=== PATIENT | female | born 1975 | race Caucasian/White ===

== ENCOUNTER 2020-05-04 21:46 | Inpatient (IN) | payer BC ==
--- OUTSIDE RECORDS SUMMARY | 2020-05-04 21:49 | XMS REPORT | Continuity of Care Document ---
:1975 Author Organization [facility] Team Providers Name Role Phone [employer] Information [employer] Unavailable Un available Problems Problem Status Onset Classification Date Comments [facility] e Date Reported M79.673 - PAIN IN Active 06/15/20 [facility] UNSPECIFIED FOOT [address] [place] Mitral valve Active Problem 06/18/2017 OPI D regurgitation [place] (disorder) Cervical disc Active Problem 05/23/2019 [facility] dical disorder Group, (disorder) [facility] [place] Chronic neck pain Active Problem 05/23/2019 [facility] (finding) Group, [facility] [place] Disorder of Active Problem 05/23/2019 [facility] sleep-wake cycle Félix up, (disorder) [facility] [place] Carpal tunnel Active Problem 05/23/2019 [facility] dical syndrome Group, (disorder) [facility] [place] History of - Active Problem 05/23/2019 Med ical [place]'s palsy Group,M H (context-dependent O PID [place]) [place] Hyperlipidemia Active Problem 05/23/2019 [facility] edical (disorder) Group, [facility] [place] Hypertensive Active Problem 05/23/2019 Med ical disorder, systemic G miranda, arterial [facility] [place] (disorder) [place] Hypothyroidism Active Problem 05/23/2019 [facility] edical (disorder) Group, [facility] [place] Mitral valve Active Problem 05/23/2019 Med ical prolapse Group, (disorder) [facility] [place] Depressive Active Problem 05/23/2019 Medic al disorder Group, (disorder) [facility] [place] Raynaud's disease Active Problem 05/23/2019 [facility] Medical (disorder) Group, [facility] [place] Abnormal cervical Active Problem 05/23/2019 [facility] Medical Papanicolaou smear Aileen jean, (finding) [facility] [place] Patient encounter Active Problem 05/23/2019 M [facility] status (finding) Félix up, [facility] [place] Medications Medication Details Route Status Patient Ordering Order Source Instructions Provider Date Metronidazole 1 appl, TOP, Active MH 0.01 MG/MG Daily, # 45 gm, 019 Medic al Topical Gel 1 Refill(s), Group [MetroGel] Pharmacy: [facility] 808 levocetirizine 5 1 tab, PO, QPM, Active MH mg oral tablet # 90 tab, 1 019 Medic al Refill(s), Group Pharmacy: [facility] 808 rosuvastatin 5 = 1 tab, PO, Active MH mg oral tablet Bedtime, # 90 019 Med ical tab, 1 Group Refill(s), Pharmacy: [facility] 808 Metoprolol See Active Succinate ER 50 Instructions, 019 Me dical mg oral tablet, TAKE 1 TABLET Gr oup extended release BY MOUTH TWICE A DAY AND AT BEDTIME, # 270 tab, 1 Refill(s), Pharmacy: [facility] 808 meloxicam 15 mg 15 mg = 1 tab, Active M H oral tablet PO, Daily, PRN 019 Medic al neck pain only, Group # 30 tab, 0 Refill(s), Pharmacy: [facility] 808 Alprazolam 0.25 0.25 mg = 1 Active MH MG Oral Tablet tab, PO, Daily, 019 M edical [Xanax] PRN panic Group attacks tamela, # 30 tab, 0 Refill(s) meloxicam 15 mg 15 mg = 1 tab, Active M H oral tablet PO, Daily, PRN 019 Medic al neck pain only, Group # 30 tab, 0 Refill(s) Alprazolam 0.25 0.25 mg = 1 Active MH MG Oral Tablet tab, PO, Daily, 019 M edical [Xanax] PRN panic Group attacks tamela, # 30 tab, 0 Refill(s) FLUoxetine 40 mg = 1 cap, PO, Active MH oral capsule Daily, # 90 019 Medical cap, 1 Group Refill(s), Pharmacy: [facility]/pharmacy #[id number] Vitamin D2 See Active MH 50,000 intl Instructions, # 018 Medi mirella units oral 12 unknown Group capsule unit, Refill(s) 1, TAKE ONE CAPSULE BY MOUTH ONCE A WEEK FOR 12 WEEKS, Pharmacy: [facility]/pharmacy #[id number] Metronidazole See Active 0.0075 MG/MG Instructions, # 018 Med ical Vaginal Gel 70 gm, INSERT 1 Grou p APPLICATORFUL VAGINALLY AT BEDTIME, Pharmacy: [facility] Metronidazole See Active 0.0075 MG/MG Instructions, # 018 Med ical Vaginal Gel 70 gm, INSERT 1 Grou p APPLICATORFUL VAGINALLY AT BEDTIME, Pharmacy: [facility] Metoprolol See Active Succinate ER 50 Instructions, # 018 Medical mg oral tablet, 270 tab, Group extended release Refill(s) 1, TAKE 1 TABLET BY MOUTH TWICE DAILY AND AT BEDTIME, Pharmacy: [facility] levocetirizine 5 See Active mg oral tablet Instructions, # 018 M edical 90 tab, Group Refill(s) 1, TAKE 1 TABLET BY MOUTH EVERY EVENING, Pharmacy: [facility] Ergocalciferol See Active 02138 UNT Oral Instructions, # 018 M edical Capsule 11 unknown Group unit, Refill(s) 2, TAKE 1 CAPSULE BY MOUTH EVERY WEEK, Pharmacy: [facility] Naltrexone PO, 0 Refill(s) Active 017 Medical Group Allergies, Adverse Reactions, Alerts Substance Category Reaction Severity Reaction Status Date Comments S ource type Reported Adhesive Assertion Drug Active Tape allergy Medical Group codeine Assertion Drug Active allergy Medical Group Dilaudid Assertion Drug Active allergy Medical Group morphine Assertion Drug Active allergy Medical Group Norvasc Assertion Drug Active allergy Medical Group Robaxin Assertion Drug Active allergy Medical Group Immunizations No Data Provided for This Section Results No Data Provided for This Section Pathology Reports No Data Provided for This Section Diagnostic Reports Report Value Date Source Spine cervical series EXAM: 03/09/2019 CHENCHO Connelly DX Cervical spine x-ray, 5 view(s). CLINICAL HX: - M54.2 Cervicalgia. Age: 43 years. Gender: Female. COMPARISON: None. FINDINGS: Technical: On the lateral vi ew(s), the craniocervical junction to the C7-T1 levels are visualized. Alignment: Mild straightening, likely positional . Fracture: No acute fracture or subluxation. Odontoid process: Intact. Spondylosis: Mild multilevel uncovertebral joint hypertrophy. No high-grade osseous foraminal narrowing. Prevertebral soft tissues: Within normal limits. IMPRESSION: 1. No acute fracture. Foot 2 views DX Exam: Right foot x-ray, 3 views 06/15/2017 [facility] [place] Reason for Exam: M79.673 P ain in unspecified foot - M79.673 Pain in unspecified foot Comparison Exam: None Discussion: Slightly displaced oblique f racture is seen within the mid and distal aspects of the proximal phalanx of the 5th digit. The fracture line extends into the articulating surface with the distal phalanx. N o suspicious osteoblastic or osteolytic lesions seen to suggest pathologic involvement. Findings discussed with esthetician and manager medical spa Julisa on 06/15/2017 at 1325 hours. Impression: 1. Slightly displaced obliq ue fracture is seen within the mid and distal aspects of the proximal phalanx of the 5th digit. Consultation Notes No Data Provided for This Section Discharge Summaries No Data Provided for This Section History and Physicals No Data Provided for This Section Vital Signs Vital Sign Value Date Comments Source Height 154.94 cm 03/09/2019 [facility] Gr[facility] p BMI Calculated 27.08 03/09/2019 [facility] Gr oup Temperature Oral (F) 98.8 F 03/09/2019 [facility] Heart Rate 75 03/09/2019 Medical Gr[facility] p Weight 65 03/09/2019 Medical Gr[facility] p Systolic (mm Hg) 127 03/09/2019 Medical Group Diastolic (mm Hg) 84 03/09/2019 Medical Group Weight 68.364 10/20/2017 Medical Grou p BMI Calculated 27.57 10/20/2017 Medical Gr oup Systolic (mm Hg) 135 10/20/2017 Medical Group Diastolic (mm Hg) 90 10/20/2017 Medical Group Heart Rate 71 10/20/2017 Medical Grou p Temperature Oral (F) 98.4 F 10/20/2017 [facility] Height 157.48 cm 10/20/2017 Medical Grou p Encounters Location Location Encounter Encounter Reason Attending ADM OK Stat Source Details Type Number For Provider Date Date Visit Outpatient [id number] MAJID 11/12 [facility] [place] [facility] [id number] SORAIDA 12/02 [facility] /2017 [place] [facility] [id number] CAR[place]INA 02/21 Activ e [facility] ADEJU [place] [facility] [id number] ECHO VISIT 05/06 Act [facility] Outpatient [id number] [place] 05/13 Active [facility] Outpatient [id number] SORAIDA 06/02 Active [facility] JONATHAN [facility] Out[facility] Diag [id number] [place] 06/15 06/[address] [facility] [address] [facility] /2016 [facility] [place] [facility] [place] Outpatient [id number] SORAIDA 10/20 Active [facility] [id number] Sora[place] 10/20 10/21 [facility] [place] Outpatient [id number] CAROLYN 11/14 Active [facility] ORTEZ [facility] Outpatient [id number] MAJID 11/18 [facility] [id number] Majid 11/18 11/18 Cardiology Pre-Reg Adilson /2017 Medic al [place] Group [facility] Outpatient [id number] SORAIDA 12/02 Active [facility] JONATHAN [place] [facility] Phone [id number] 01/11 01/13 Primary Message /2017 [facility] [place] [facility] [place] Outpatient [id number] SORAIDA 02/17 Active [facility] JONATHAN [facility] Phone [id number] 02/24 02/26 MH Primary Message /2017 [facility] [place] [facility] Phone [id number] 03/14 03/16 MH Primary Message /2017 [facility] [place] [facility] Phone [id number] 07/20 07/22 MH Primary Message /2017 [facility] [place] MG Phone [id number] 11/01 11/03 Primary Message /2018 [facility] [place] [facility] [place] [facility] Phone [id number] 02/23 02/25 Primary Message /2018 [facility] [place] [facility] [place] Outpatient [id number] Soraida 03/09 [facility] [id number] S[place] 03/09 03/10 MH Primary Jonathan /2018 [facility] [place] [facility] Outpt Diag [id number] Soraida 03/09 03/10 [facility] Out[facility] [place] [facility] Between [id number] 03/10 03/11 Primary Visit /2018 [facility] [place] [facility] [place] [facility] Between [id number] 03/12 03/13 Primary Visit /2018 [facility] [place] [facility] Phone [id number] 03/13 03/15 Primary Message /2018 [facility] [place] Outpatient [id number] Adi 06/05 Active [facility] Procedures Procedure Code Date Perfomer Comments Source Breast augmentation [id number] [facility] dical Group, [facility] [place] Cholecystectomy [id number] Medica l Group, [facility] [place] Laminectomy [id number] Medical Group, [facility] [place] TL - Tubal ligation [id number] [facility] dical Group, [facility] [place] Assessment and Plan No Data Provided for This Section Plan of Care No Data Provided for This Section Social History Social History Date Source Social History TypeResponse 12/02/2016 [facility] [place] Alcohol Current, Frequency: 1-2 times per month. Smoking Status Never smoker; Ready to change: No; Kim rns about tobacco use in household: No; Lives with someone who smokes; Cigarette Smoking Last 365 Days No; Reg Smoking Cessation Counseling No; Other Tobacco Frequency smokes outside; entered on: 03/09/19 Social History TypeResponse 12/02/2016 [facility] [place] Alcohol Current, Frequency: 1-2 times per month. Smoking Status Never smoker; Ready to change: No; Kim rns about tobacco use in household: No; Lives with someone who smokes; Cigarette Smoking Last 365 Days No; Reg Smoking Cessation Counseling No; Other Tobacco Frequency smokes outside; entered on: 03/09/19 Family History No Data Provided for This Section Advance Directives No Data Provided for This Section Functional Status No Data Provided for This Section
[2020-05-04] MEDS ORDERED: ONDANSETRON 4 MG/2 ML VIAL ONE (22:38)
[2020-05-04] MEDS ORDERED: NA CHLORIDE 0.9% 1,000 ML ONE (22:38)
[2020-05-04 23:22] LABS: Absolute Lymphocytes (CBC) 1.1 K/uL (0.7-4.9); Basophils % 0.3 % (0-1.3); MPV 8.3 fL (7.6-11.3); RBC Red Blood Cell Count 4.54 M/uL (3.86-4.86)
[2020-05-04 23:35] LABS: ALT/SGPT 43 U/L (12-78); AST/SGOT 33 U/L (15-37); Albumin 3.6 g/dL (3.4-5.0); Alkaline Phosphatase 193 U/L (45-117); BUN Blood Urea Nitrogen 24 mg/dL (7-18); Bicarbonate 20 mmol/L (21-32); Bilirubin Total 0.7 mg/dL (0.2-1.0); Glucose Level 92 mg/dL (74-106); Potassium 4.3 mmol/L (3.5-5.1); Protein, Total 7.7 g/dL (6.4-8.2); Sodium Level 141 mmol/L (136-145)
[2020-05-05] MEDS ORDERED: KETOROLAC 30 MG/ML INJ ONE (00:54)
[2020-05-05] MEDS ORDERED: ONDANSETRON 4 MG/2 ML VIAL ONE (00:55)
[2020-05-05] MEDS ORDERED: NA CHLORIDE 0.9% 1,000 ML ONE ×4 (00:55→17:08)
[2020-05-05] MEDS ORDERED: FENTANYL CITR 100 MCG/2 ML ONE (02:00)
[2020-05-05 02:32] LABS: CKMB Creatine Kinase MB < 1.0 ng/mL (0.3-3.6); Creatine Phosphokinase 57 U/L (26-192); Lipase 32 U/L (73-393); Troponin (Emerg Dept Use Only) < 0.02 ng/mL (0.0-0.045)
[2020-05-05 03:30] LABS: Urine Bacteria <20 /HPF (<20); Urine Culture Reflex Order NOT NEEDED; Urine RBC <5 /HPF (NONE SEEN)
[2020-05-05 04:39] LABS: Protime INR 1.06
[2020-05-05] MEDS ORDERED: PROMETHAZINE INJ 25 MG/ML AMP ONE (04:42)
--- NOTE | 2020-05-05 04:49 | EDPHYS ---
Physician Documentation [facility] Name: Qi Cruz Age: 44 yrs Sex: Female : 1975 Arrival Date: 05/04/2020 Time: 21:49 Bed 5 Private MD: Out, [facility] ED Physician Angel Jain HPI: 05/05 02:13 This 44 yrs old Female presents to ER via Wheelchair with complaints of tw4 Fever, Vomiting. 02:13 Onset: The symptoms/episode began/occurred today. tw4 02:15 The patient reports fever, not measured (subjective). Modifying factors: there are no tw4 obvious modifying factors. Associated signs and symptoms: Pertinent positives: headache, vomiting. Severity of symptoms: At their worst the symptoms were severe in the emergency department the symptoms are unchanged. The patient has not experienced similar symptoms in the past. 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 - Social history:: Smoking status: Patient denies any tobacco usage or history of. ROS: 05/05 02:15 Constitutional: Negative for fever, chills, and weight loss, Eyes: Negative for injury, tw4 pain, redness, and discharge, Cardiovascular: Negative for chest pain, palpitations, and edema, Respiratory: Negative for shortness of breath, cough, wheezing, and pleuritic chest pain, Back: Negative for injury and pain, MS/Extremity: Negative for injury and deformity, Skin: Negative for injury, rash, and discoloration. Abdomen/GI: Positive for nausea and vomiting, nausea, vomiting, Negative for abdominal pain, nausea, vomiting, and diarrhea, diarrhea, constipation, abdominal cramps, abdominal distension, anorexia, dysphagia, black/tarry stool, rectal pain, rectal bleeding, bowel incontinence. Neuro: Positive for headache, Negative for altered mental status, dizziness, gait disturbance, hearing loss, seizure activity, speech changes, tinnitus, visual changes. Exam: 02:15 Head/Face: Normocephalic, atraumatic. tw4 02:15 Chest/axilla: Normal chest wall appearance and motion. Nontender with no deformity. No lesions are appreciated. Cardiovascular: Regular rate and rhythm with a normal S1 and S2. No gallops, murmurs, or rubs. Normal PMI, no JVD. No pulse deficits. Respiratory: Lungs have equal breath sounds bilaterally, clear to auscultation and percussion. No rales, rhonchi or wheezes noted. No increased work of breathing, no retractions or nasal flaring. Abdomen/GI: Soft, non-tender, with normal bowel sounds. No distension or tympany. No guarding or rebound. No evidence of tenderness throughout. Back: No spinal tenderness. No costovertebral tenderness. Full range of motion. MS/ Extremity: Pulses equal, no cyanosis. Neurovascular intact. Full, normal range of motion. Neuro: Awake and alert, GCS 15, oriented to person, place, time, and situation. Cranial nerves II-XII grossly intact. Motor strength 5/5 in all extremities. Sensory grossly intact. Cerebellar exam normal. Normal gait. 02:15 Constitutional: The patient appears in obvious distress, moderately distressed. 10:51 ECG was reviewed by the Attending Physician. patito Vital Signs: 05/04 22:13 BP 142 / 88; Pulse 147; Resp 20 S; Temp 99.1(O); Pulse Ox 100% ; Weight 58.97 kg; ca1 Height 5 ft. 2 in. (157.48 cm); 22:58 BP 153 / 85; Pulse 132; Resp 20 S; Pulse Ox 100% on R/A; jd3 23:52 BP 134 / 69; Pulse 140; Resp 19 S; Temp 98.6(O); Pulse Ox 100% on R/A; jd3 0713 00:58 BP 137 / 78; Pulse 140; Resp 20 S; Pulse Ox 100% on R/A; jd3 02:19 BP 131 / 65; Pulse 146; Resp 19 S; Pulse Ox 99% on R/A; jd3 03:29 BP 124 / 58; Pulse 140; Resp 20 S; Pulse Ox 100% on R/A; jd3 04:42 BP 142 / 80; Pulse 145; Resp 19 S; Pulse Ox 99% on R/A; jd3 05:50 BP 115 / 59; Pulse 139; Resp 20 S; Pulse Ox 97% on R/A; jd3 06:30 BP 104 / 58; Pulse 128; Resp 20 S; Pulse Ox 98% on R/A; jd3 08:00 BP 105 / 52; Pulse 128; Resp 18; Pulse Ox 98% on R/A; ph 09:11 BP 115 / 61; Pulse 120; Resp 16; Pulse Ox 99% on R/A; ph 07/ 22:13 Body Mass Index 23.78 (58.97 kg, 157.48 cm) ca1 MDM: 01:22 Patient medically screened. tw4 08:03 Differential diagnosis: viral Infection, bacterial infection, URI, bronchitis. Data tw4 reviewed: vital signs, nurses notes. Data interpreted: court recording monitor: rate is 142 beats/min, rhythm is sinus tachycardia, Pulse oximetry: Interpretation: normal. Counseling: I had a detailed discussion with the patient and/or guardian regarding: the historical points, exam findings, and any diagnostic results supporting the discharge/admit diagnosis, lab results, radiology results. Physician consultation: Dagoberto Cardona regarding admission, to the ICU, patient's condition, and will see patient. 08:44 Patient medically screened. [facility] 05/04 22:23 Order name: COVID-19 [facility] 05/04 22:23 Order name: Flu; Complete Time: 01:47 05/05 01:48 Interpretation: Within normal limits. 05/04 22:23 Order name: Strep; Complete Time: 01:47 05/05 01:48 Interpretation: Within normal limits. 05/04 22:23 Order name: CBC with Diff; Complete Time: 01:47 05/05 01:47 Interpretation: Normal except: MCV 83.6; LYM% 11.0; YOANA% 79.1. [facility] 05/04 22:23 Order name: CMP; Complete Time: 01:47 05/05 01:48 Interpretation: Normal except: CL 109; CO2 20; BUN 24. [facility] 05/05 01:06 Order name: Throat Culture EDMS 05/05 02:06 Order name: Procalcitonin; Complete Time: 04:45 05/05 02:06 Order name: Ckmb; Complete Time: 05:32 05/05 05:32 Interpretation: Within normal limits: CKMB < 1.0. 05/05 02:06 Order name: CPK; Complete Time: 05:32 05/05 02:06 Order name: Lactate; Complete Time: 08:43 05/05 02:06 Order name: Lipase; Complete Time: 08:43 05/05 02:06 Order name: Protime (+inr); Complete Time: 08:43 05/05 02:06 Order name: Ptt, Activated; Complete Time: 08:43 05/05 02:06 Order name: Troponin (emerg Dept Use Only); Complete Time: 08:43 05/05 01:45 Order name: CT Head Brain wo Cont 05/05 01:45 Order name: CT Abd/Pelvis - IV Contrast Only 05/05 02:06 Order name: Urine Microscopic Only; Complete Time: 04:45 05/05 02:06 Order name: Chest Single View XRAY; Complete Time: 08:43 05/05 02:20 Order name: Urine --Ancillary (enter results); Complete Time: 08:43 05/05 02:20 Order name: Urine Dipstick--Ancillary (enter results); Complete Time: 08:43 05/05 04:41 Order name: Thyroid Stimulating Hormone; Complete Time: 05:30 05/05 05:40 Order name: T3 Free 05/05 05:40 Order name: T4 Free 05/05 05:40 Order name: T4,Total 05/05 15:22 Order name: RAD EDOR 05/05 16:25 Order name: Creatine Phosphokinase EDOR 05/05 16:25 Order name: CKMB Creatine Kinase MB EDOR 05/05 16:25 Order name: Troponin I EDOR 05/04 22:23 Order name: Document PUI#; Complete Time: 22:57 05/04 22:23 Order name: Droplet/Contact Precautions; Complete Time: 22:57 05/04 22:23 Order name: Labs collected and sent; Complete Time: 23:13 05/04 22:23 Order name: Notify Health Dept [phone]/ ; Complete Time: 23:13 05/04 22:23 Order name: O2 Per Protocol; Complete Time: 22:57 05/05 01:49 Order name: EKG - Nurse/Tech; Complete Time: 02:09 d3 05/05 02:06 Order name: Accucheck; Complete Time: 02:10 05/05 02:06 Order name: Cardiac monitoring; Complete Time: 02:10 05/05 02:06 Order name: EKG - Nurse/Tech; Complete Time: 02:10 05/05 02:06 Order name: IV Saline Lock - Large Bore; Complete Time: 02:10 05/05 02:06 Order name: Labs collected and sent; Complete Time: 04:21 05/05 02:06 Order name: O2 Per Protocol; Complete Time: 02:10 05/05 02:06 Order name: O2 Sat Monitoring; Complete Time: 02:10 05/05 02:06 Order name: Urine Dipstick-Ancillary (obtain specimen); Complete Time: 02:17 05/05 09:45 Order name: EKG - Nurse/Tech; Complete Time: 10:01 patito EC:11 Rate is 142 beats/min. Rhythm is regular. QRS [place] is Normal. CA interval is normal. tw4 QRS interval is normal. QT interval is normal. No Q waves. T waves are Normal. No ST changes noted. Clinical impression: Sinus tachycardia. Interpreted by me. Reviewed by me. 10:51 Rate is 125 beats/min. Rhythm is regular. QRS [place] is Normal. CA interval is normal. patito QRS interval is normal. QT interval is normal. No Q waves. T waves are Normal. No ST changes noted. Clinical impression: Sinus tachycardia. Interpreted by me. Reviewed by me. Administered Medications: 05/04 22:58 Drug: Zofran (Ondansetron) 4 mg Route: IVP; Site: right wrist; jd3 23:58 Follow up: Response: No adverse reaction jd3 22:58 Drug: NS 0.9% 1000 ml Route: IV; Rate: 1 bolus; Site: right wrist; jd3 23:58 Follow up: Response: No adverse reaction; IV Status: Completed infusion; IV Intake: jd3 1000ml 05/05 01:00 Drug: TORadol 30 mg Route: IVP; Site: right wrist; jd3 02:00 Follow up: Response: No adverse reaction jd3 01:00 Drug: Zofran (Ondansetron) 4 mg Route: IVP; Site: right wrist; jd3 02:00 Follow up: Response: No adverse reaction jd3 01:00 Drug: NS 0.9% 1000 ml Route: IV; Rate: 1 bolus; Site: right wrist; jd3 02:00 Follow up: Response: No adverse reaction; IV Status: Completed infusion; IV Intake: jd3 1000ml 02:09 Drug: fentaNYL (PF) 25 mcg Route: IVP; Site: right wrist; jd3 03:00 Follow up: Response: No adverse reaction; RASS: Alert and Calm (0) jd3 04:41 Drug: Phenergan 12.5 mg Route: IVP; Site: right wrist; jd3 05:40 Follow up: Response: No adverse reaction jd3 04:41 Drug: NS 0.9% 1000 ml Route: IV; Rate: 1 bolus; Site: right wrist; jd3 05:40 Follow up: Response: No adverse reaction; IV Status: Completed infusion; IV Intake: jd3 1000ml 05:41 CANCELLED (Physician Discretion): Propranolol 60 mg PO once tw4 05:43 Not Given (Physician Discretion): Esmolol 0.25 mg/kg IV at calculated rate once jd3 05:43 Not Given (Physician Discretion): Esmolol 50 mcg/kg/min IV at calculated rate once jd3 06:14 Drug: HydroCORTISONE 100 mg Route: IVP; Site: right hand; mg2 07:00 Follow up: Response: No adverse reaction jd3 06:48 Not Given (out of stock): Propranolol 1 mg IVP once; over 1 minute mg2 07:06 Not Given (Other Intervention Used): Propranolol 60 mg PO once sg 07:08 Not Given (Physician Discretion): Propranolol 1 mg IVP once; over 1 minute jd3 10:49 Drug: NS 0.9% 1000 ml Route: IV; Rate: 1 bolus; Site: right antecubital; ph 10:49 Drug: Lopressor 5 mg Route: IVP; Site: right antecubital; ph 10:50 Not Given (Other Intervention Used): Esmolol 0.25 mg/kg IV at calculated rate once ph 10:50 Not Given (Other Intervention Used): Esmolol 50 mcg/kg/min IV at calculated rate once ph 10:50 Drug: Lopressor (metoprolol TARTRATE) 50 mg Route: PO; ph 17:26 Not Given (Other Intervention Used): NS 0.9% 1000 ml IV at 125 ml/hr continuous ph Disposition: 05/05/20 04:48 Hospitalization ordered by Dagoberto Cardona for Inpatient Admission. Preliminary diagnosis are Cyclical vomiting, intractable, Dehydration, Tachycardia, unspecified, Thyrotoxicosis, unspecified. - Bed requested for Telemetry/MedSurg (Inpatient). - Status is Inpatient Admission. ph - Condition is Stable. - Problem is new. - Symptoms have improved. Signatures: Dispatcher [employer] EDMS Briana Pina, Lion Jacobs RN, RN RN sg Anderson, Corey, MD MD cha Hall, Patricia, RN RN ph Ioana Miller RN Osmany Pisano RN WILI jBassam Sutton MD MD tw4 Ramon Daigle RN RN mg2 Kimber Palomo RN RN ca1 Corrections: (The following items were deleted from the chart) 04:40 04:37 THYROID STIMULAT HORMONE+C.LAB.BRZ ordered. [facility] 05:13 04:48 Hospitalization Ordered by Dagoberto Cardona for Inpatient Admission. Preliminary cg diagnosis is Cyclical vomiting, intractable; Dehydration; Tachycardia, unspecified. Bed requested for Telemetry/MedSurg (Inpatient). Status is Inpatient Admission. Condition is Stable. Problem is new. Symptoms have improved. tw4 05:41 05:40 Propranolol 60 mg PO once ordered. [facility] tw4 08:04 05:13 05/05/2020 04:48 Hospitalization Ordered by Dagoberto Cardona for Inpatient [facility] Admission. Preliminary diagnosis is Cyclical vomiting, intractable; Dehydration; Tachycardia, unspecified. Bed requested for [facility] ER HOLD. Status is Inpatient Admission. Condition is Stable. Problem is new. Symptoms have improved. 15:18 08:04 05/05/2020 04:48 Hospitalization Ordered by Dagoberto Cardona for Inpatient Admission. Preliminary diagnosis is Cyclical vomiting, intractable; Dehydration; Tachycardia, unspecified; Thyrotoxicosis, unspecified. Bed requested for [facility] ER HOLD. Status is Inpatient Admission. Condition is Stable. Problem is new. Symptoms have improved. tw4 17:39 15:18 05/05/2020 04:48 Hospitalization Ordered by Dagoberto Cardona for Inpatient Admission. Preliminary diagnosis is Cyclical vomiting, intractable; Dehydration; Tachycardia, unspecified; Thyrotoxicosis, unspecified. Bed requested for Telemetry/MedSurg (Inpatient). Status is Inpatient Admission. Condition is Stable. Problem is new. Symptoms have improved. kl
--- NOTE | 2020-05-05 04:49 | ER ---
Nurse's Notes [facility] Name: Qi Cruz Age: 44 yrs Sex: Female : 1975 Arrival Date: 05/04/2020 Time: 21:49 Bed 5 Private MD: Out, [facility] Diagnosis: Cyclical vomiting, intractable;Dehydration;Tachycardia, unspecified;Thyrotoxicosis, unspecified Presentation: 05/04 22:13 Chief complaint: Patient states: Vomiting started at 0700 this morning. Vomiting every ca1 30 minutes since. Actively vomiting in triage. Did not take anti-nausea meds. Denies diarrhea. Reports headache and fever Htemp 102F. Coronavirus screen: Proceed with normal triage. Patient denies a cough. Patient denies shortness of breath or difficulty breathing. Patient denies measured and/or subjective temperature greater than 100.4F prior to today's visit. Patient denies travel on a cruise ship or to a country the [facility] currently lists as an affected area. Patient denies contact with known and/or suspected case of COVID-19. Ebola Screen: Patient negative for fever greater than or equal to 101.5 degrees Fahrenheit, and additional compatible Ebola Virus Disease symptoms Patient denies exposure to infectious person. Patient denies travel to an Ebola-affected area in the 21 days before illness onset. No symptoms or risks identified at this time. Initial Sepsis Screen: Does the patient meet any 2 criteria? No. Patient's initial sepsis screen is negative. Does the patient have a suspected source of infection? No. Patient's initial sepsis screen is negative. Risk Assessment: Do you want to hurt yourself or someone else? Patient reports no desire to harm self or others. Onset of symptoms was May 04, 2020. 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 - Social history:: Smoking status: Patient denies any tobacco usage or history of. Screenin:00 Abuse screen: Denies threats or abuse. Nutritional screening: No deficits noted. jd3 Tuberculosis screening: No symptoms or risk factors identified. Fall Risk Ambulatory Aid- None/Bed Rest/Nurse Assist (0 pts). Gait- Normal/Bed Rest/Wheelchair (0 pts) Mental Status- Oriented to own ability (0 pts). Total Kelly Fall Scale indicates No Risk (0-24 pts). Assessment: 22:59 General: Appears in no apparent distress. uncomfortable, Behavior is calm, cooperative, jd3 appropriate for age. Pain: Complains of pain in abdomen Quality of pain is described as aching. Neuro: Level of Consciousness is awake, alert, obeys commands, Oriented to person, place, time, situation. Cardiovascular: Denies chest pain, Capillary refill < 3 seconds Patient's skin is warm and dry. Respiratory: Airway is patent Respiratory effort is even, unlabored, Respiratory pattern is regular, symmetrical, Denies cough, shortness of breath. GI: Abdomen is flat, non-distended, Abd is soft and non tender X 4 quads. Reports nausea, vomiting. : No signs and/or symptoms were reported regarding the genitourinary system. EENT: No signs and/or symptoms were reported regarding the EENT system. Derm: Skin is intact, Skin is dry, Skin is normal, Skin temperature is warm. Musculoskeletal: Circulation, motion, and sensation intact. Range of motion: intact in all extremities. 23:51 Reassessment: Patient and/or family updated on plan of care and expected duration. Pain jd3 level reassessed. Patient is alert, oriented x 3, equal unlabored respirations, skin warm/dry/pink. pt reporting no throwing up, reports continued nausea, provider notified. 05/05 00:58 Reassessment: Patient and/or family updated on plan of care and expected duration. Pain jd3 level reassessed. Patient is alert, oriented x 3, equal unlabored respirations, skin warm/dry/pink. pt reporting returning nausea and new onset headache. provider notified, new orders received. 02:18 Reassessment: No changes from previously documented assessment. Patient and/or family jd3 updated on plan of care and expected duration. Pain level reassessed. Patient is alert, oriented x 3, equal unlabored respirations, skin warm/dry/pink. 03:29 Reassessment: No changes from previously documented assessment. Patient and/or family jd3 updated on plan of care and expected duration. Pain level reassessed. Patient is alert, oriented x 3, equal unlabored respirations, skin warm/dry/pink. 04:35 Reassessment: Patient and/or family updated on plan of care and expected duration. Pain jd3 level reassessed. Patient is alert, oriented x 3, equal unlabored respirations, skin warm/dry/pink. pt reported returning nausea, provider notified. 05:50 Reassessment: Patient and/or family updated on plan of care and expected duration. Pain jd3 level reassessed. Patient is alert, oriented x 3, equal unlabored respirations, skin warm/dry/pink. Patient states feeling better. 06:30 Reassessment: Patient and/or family updated on plan of care and expected duration. Pain jd3 level reassessed. Patient is alert, oriented x 3, equal unlabored respirations, skin warm/dry/pink. 08:00 Reassessment: Patient appears in no apparent distress at this time. No changes from ph previously documented assessment. Patient and/or family updated on plan of care and expected duration. Pain level reassessed. 09:00 Reassessment: Patient appears in no apparent distress at this time. Patient and/or ph family updated on plan of care and expected duration. Pain level reassessed. Pt resting quietly w/ eyes closed, respirations even and unlabored, HR remains elevated at 121, other VS WNL, awaiting admit orders. Vital Signs: 05/04 22:13 BP 142 / 88; Pulse 147; Resp 20 S; Temp 99.1(O); Pulse Ox 100% ; Weight 58.97 kg; ca1 Height 5 ft. 2 in. (157.48 cm); 22:58 BP 153 / 85; Pulse 132; Resp 20 S; Pulse Ox 100% on R/A; jd3 23:52 BP 134 / 69; Pulse 140; Resp 19 S; Temp 98.6(O); Pulse Ox 100% on R/A; jd3 05/05 00:58 BP 137 / 78; Pulse 140; Resp 20 S; Pulse Ox 100% on R/A; jd3 02:19 BP 131 / 65; Pulse 146; Resp 19 S; Pulse Ox 99% on R/A; jd3 03:29 BP 124 / 58; Pulse 140; Resp 20 S; Pulse Ox 100% on R/A; jd3 04:42 BP 142 / 80; Pulse 145; Resp 19 S; Pulse Ox 99% on R/A; jd3 05:50 BP 115 / 59; Pulse 139; Resp 20 S; Pulse Ox 97% on R/A; jd3 06:30 BP 104 / 58; Pulse 128; Resp 20 S; Pulse Ox 98% on R/A; jd3 08:00 BP 105 / 52; Pulse 128; Resp 18; Pulse Ox 98% on R/A; ph 09:11 BP 115 / 61; Pulse 120; Resp 16; Pulse Ox 99% on R/A; ph 05/04 22:13 Body Mass Index 23.78 (58.97 kg, 157.48 cm) ca1 ED Course: 05/04 21:49 Patient arrived in ED. es 21:49 Out, [facility] is Private Physician. es 22:16 Triage completed. ca1 22:19 Arm band placed on right wrist. ca1 22:25 Osmany Sebastian, RN is Primary Nurse. jd3 22:26 Bassam Wall MD is Attending Physician. tw4 22:50 Inserted saline lock: 20 gauge in right wrist, using aseptic technique. jd3 22:57 Strep Sent. jd3 22:57 Flu Sent. jd3 22:57 COVID-19 Sent. jd3 23:01 Patient has correct armband on for positive identification. Placed in gown. Bed in low jd3 position. Call light in reach. Side rails up X 1. Pulse ox on. NIBP on. 05/05 02:54 CT Abd/Pelvis - IV Contrast Only In Process Unspecified. EDMS 02:55 CT Head Brain wo Cont In Process Unspecified. EDMS 04:10 Chest Single View XRAY In Process Unspecified. EDMS 04:46 Dagoberto Cardona is Hospitalizing Provider. tw4 08:34 Attending Physician role handed off by Bassam Wall MD [facility] 08:34 Angel Jain MD is Attending Physician. patito Administered Medications: 05/04 22:58 Drug: Zofran (Ondansetron) 4 mg Route: IVP; Site: right wrist; jd3 23:58 Follow up: Response: No adverse reaction jd3 22:58 Drug: NS 0.9% 1000 ml Route: IV; Rate: 1 bolus; Site: right wrist; jd3 23:58 Follow up: Response: No adverse reaction; IV Status: Completed infusion; IV Intake: jd3 1000ml 05/05 01:00 Drug: TORadol 30 mg Route: IVP; Site: right wrist; jd3 02:00 Follow up: Response: No adverse reaction jd3 01:00 Drug: Zofran (Ondansetron) 4 mg Route: IVP; Site: right wrist; jd3 02:00 Follow up: Response: No adverse reaction jd3 01:00 Drug: NS 0.9% 1000 ml Route: IV; Rate: 1 bolus; Site: right wrist; jd3 02:00 Follow up: Response: No adverse reaction; IV Status: Completed infusion; IV Intake: jd3 1000ml 02:09 Drug: fentaNYL (PF) 25 mcg Route: IVP; Site: right wrist; jd3 03:00 Follow up: Response: No adverse reaction; RASS: Alert and Calm (0) jd3 04:41 Drug: Phenergan 12.5 mg Route: IVP; Site: right wrist; jd3 05:40 Follow up: Response: No adverse reaction jd3 04:41 Drug: NS 0.9% 1000 ml Route: IV; Rate: 1 bolus; Site: right wrist; jd3 05:40 Follow up: Response: No adverse reaction; IV Status: Completed infusion; IV Intake: jd3 1000ml 05:41 CANCELLED (Physician Discretion): Propranolol 60 mg PO once tw4 05:43 Not Given (Physician Discretion): Esmolol 0.25 mg/kg IV at calculated rate once jd3 05:43 Not Given (Physician Discretion): Esmolol 50 mcg/kg/min IV at calculated rate once jd3 06:14 Drug: HydroCORTISONE 100 mg Route: IVP; Site: right hand; mg2 07:00 Follow up: Response: No adverse reaction jd3 06:48 Not Given (out of stock): Propranolol 1 mg IVP once; over 1 minute mg2 07:06 Not Given (Other Intervention Used): Propranolol 60 mg PO once sg 07:08 Not Given (Physician Discretion): Propranolol 1 mg IVP once; over 1 minute jd3 10:49 Drug: NS 0.9% 1000 ml Route: IV; Rate: 1 bolus; Site: right antecubital; ph 10:49 Drug: Lopressor 5 mg Route: IVP; Site: right antecubital; ph 10:50 Not Given (Other Intervention Used): Esmolol 0.25 mg/kg IV at calculated rate once ph 10:50 Not Given (Other Intervention Used): Esmolol 50 mcg/kg/min IV at calculated rate once ph 10:50 Drug: Lopressor (metoprolol TARTRATE) 50 mg Route: PO; ph 17:26 Not Given (Other Intervention Used): NS 0.9% 1000 ml IV at 125 ml/hr continuous ph Intake: 05/04 23:58 IV: 1000ml; Total: 1000ml. jd3 Outcome: 05/05 04:48 Decision to Hospitalize by Provider. tw4 17:39 Patient left the ED. ph Signatures: Dispatcher [employer] EDMS Angel Jain MD MD cha Salyer, Jyoti Norris RN RN ph Osmany Sebastian RN RN jBassam Sutton MD MD tw4 Ramon Daigle RN RN mg2 Kimber Palomo RN RN ca1 Lion De Souza RN sg Corrections: (The following items were deleted from the chart) 05/04 22:21 22:13 Chief complaint: Patient states: Vomiting started at 0700 this morning. Vomiting ca1 every 30 minutes since. Actively vomiting in triage. Did not take anti-nausea meds. Denies diarrhea. Reports headache ca1 05/05 00:59 05/04 23:51 Reassessment: Patient appears in no apparent distress at this time. Patient jd3 and/or family updated on plan of care and expected duration. Pain level reassessed. Patient is alert, oriented x 3, equal unlabored respirations, skin warm/dry/pink. pt reporting no throwing up, reports continued nausea, provider notified. jd3
[2020-05-05 05:06] LABS: Thyroid Stimulating Hormone < 0.005 uIU/mL (0.360-3.740)
[2020-05-05] MEDS ORDERED: HYDROCORTISONE SUC 100 MG INJ ONE (05:54)
[2020-05-05 06:09] LABS: Urine Blood TRACE (NEG); Urine Glucose NEGATIVE (NEG); Urine Protein NEGATIVE (NEG); Urine Specific Gravity 1.025 (1.005-1.030); Urine pH 5.5 (5.0-7.0)
[2020-05-05] MEDS ORDERED: ESMOLOL HCL IV ONE (08:00)
--- NOTE | 2020-05-05 08:38 | RAD REPORT ---
EXAM DESCRIPTION: Apolinar Single View05/05/2020 4:10 am CLINICAL HISTORY: Hypertension/vomiting COMPARISON: none FINDINGS: The lungs appear clear of acute infiltrate. The heart is normal size. Mild prominence of the mediastinum IMPRESSION: Mild prominence of the mediastinum. This probably is confluence of normal vascular struc tures. Lymphadenopathy can also have this appearance. Followup PA and lateral chest series in 2 month s recommended
[2020-05-05] MEDS ORDERED: METOPROLOL TAR 50 MG TAB ONE (10:39)
[2020-05-05] MEDS ORDERED: METOPROLOL TARTRATE 5 MG/5 ML INJ IV ONE (10:39)
--- NOTE | 2020-05-05 11:55 | RAD REPORT ---
EXAM DESCRIPTION: CT - Abdomen Pelvis W Contrast - 05/05/2020 4:41 am CLINICAL HISTORY: The patient is 44 years old and is Female; ABD PAIN TECHNIQUE: Axial computed tomography images of the abdomen and pelvis with intravenous contrast. S agittal and coronal reformatted images were created and reviewed. This CT exam was performed using one or more of the following dose reduction techniques: automated exposure control, adjustment of t he mA and/or kV according to patient size, and/or use of iterative reconstruction technique. DLP: 906 mGy*cm COMPARISON: None. FINDINGS: LUNG BASES: Bibasilar atelectasis. No focal consolidation. HEART: Visualized heart is normal. ABDOMEN: LIVER: Diffuse hepatic steatosis. GALLBLADDER AND BILE DUCTS: Prior cholecystectomy. No ductal dilation. PANCREAS: Unremarkable. No mass. No ductal dilation. SPLEEN: Unremarkable. No splenomegaly. ADRENALS: Unremarkable. No mass. KIDNEYS AND URETERS: Unremarkable. No solid mass. No hydronephrosis. STOMACH AND BOWEL: Unremarkable. No obstruction. No mucosal thickening. PELVIS: APPENDIX: The appendix is seen and is within normal limits. BLADDER: Bladder is decompressed. REPRODUCTIVE: Tampon in the vaginal canal. 2.5 cm left ovarian cyst. ABDOMEN and PELVIS: INTRAPERITONEAL SPACE: Unremarkable. No free air. No significant fluid collection. BONES/JOINTS: No acute fracture. No dislocation. SOFT TISSUES: Bilateral breast implants. VASCULATURE: Unremarkable. No abdominal aortic aneurysm. LYMPH NODES: Unremarkable. No enlarged lymph nodes. IMPRESSION: 1. No acute abdominal or pelvic abnormality. 2. Diffuse hepatic steatosis. 3. Physiologic pelvic changes with 2.5 cm left ovarian cyst. No follow-up imaging is recommended. R eference: US recommendations based on Radiology 2010 Jun;256(3):943-54; CT/MR recommendations based o n J Am Nuria Radiol 2013;10:675-681. Electronically signed by: Ezequiel Saravia DO 05/05/2020 3:08 AM CDT Due to temporary technical issues with the PACS/Fluency reporting system, reports are being signed by the in house radiologist without review as a courtesy to ensure prompt reporting. The interpreting r adiologist is fully responsible for the content of the report.
--- NOTE | 2020-05-05 11:57 | RAD REPORT ---
In. EXAM DESCRIPTION: CT - Head Brain Wo Cont - 05/05/2020 4:40 am CLINICAL HISTORY: 44 years Female HEADACHE COMPARISON: None Technique: Contiguous axial images of the brain were obtained without the administration of intrave nous contrast.This exam was performed according to our departmental dose-optimization program which i ncludes use of Automated Exposure Control, adjustment of the mA and/or kV according to patient size a nd/or use of iterative reconstruction technique. DLP: 825 mGy*cm FINDINGS: Brain: No acute intracranial hemorrhage. No extra-axial collection. No mass effect or perry iation. Ventricles: Within normal limits in size. Globes and orbits: No acute abnormality. Bones: No acute osseous finding Paranasal sinuses: Paranasal sinuses are clear. Mastoid air cells: Well pneumatized. Soft tissues: Within normal limits IMPRESSION: No acute intracranial abnormality. Electronically signed by: Ezequiel Saravia DO 05/05/2020 3:10 AM CDT Due to temporary technical issues with the PACS/Fluency reporting system, reports are being signed by the in house radiologist without review as a courtesy to ensure prompt reporting. The interpreting r adiologist is fully responsible for the content of the report.
[2020-05-05 12:17] LABS: T3 Free 8.78 pg/mL (2.18-3.98); T4,Total 18.9 ug/dL (4.8-13.9)
[2020-05-05] MEDS ORDERED: CEFEPIME 1 GM/VIAL IV SCH (13:15)
[2020-05-05] MEDS ORDERED: ONDANSETRON 4 MG/2 ML VIAL IV PRN (13:15)
--- NOTE | 2020-05-05 15:20 | RAD REPORT ---
EXAM DESCRIPTION: RAD - Foot Right 3 View - 05/05/2020 2:58 pm CLINICAL HISTORY: Right heel infection, r/o foreign body Pain and swelling COMPARISON: No comparisons FINDINGS: Soft tissue swelling is seen about the heel. No fracture or radiopaque foreign body.
[2020-05-05] MEDS: CEFEPIME/SWI 1gm 10 ML IV SCH ×2 (16:00→21:56)
[2020-05-05 16:24] LABS: CKMB Creatine Kinase MB 1.5 ng/mL (0.3-3.6); Troponin I 0.06 ng/mL (0.0-0.045)
[2020-05-05] MEDS: NA CHLORIDE 0.9% 1,000 ML IV SCH ×2 (17:00→17:49)
[2020-05-05] MEDS: VANCOMYCIN/NS 1 gm 1 GM/250 ML BAG IV SCH (17:15)
[2020-05-05 18:03] VITALS: BMI 23.8
[2020-05-05] MEDS: ACETAMINOPHEN 500 MG TAB PO PRN (18:43)
--- NOTE | 2020-05-05 18:56 | P.HP ---
Certification for Inpatient Patient admitted to: Observation With expected LOS: <2 Midnights Patient will require the following post-hospital care: None Practitioner: I am a practitioner with admitting privileges, knowledge of patient current condition, hospital course, and medical plan of care. Services: Services provided to patient in accordance with Admission requirements found in Title 42 Section 412.3 of the Code of Federal Regulations Patient History Date of Service: 05/05/20 Primary Care Provider: Ronald Salvador Reason for admission: Fever, nausea and vomiting History of Present Illness: 44-year-old female with history of Naina sees, hypertension, mitral valve prolapse with regurgitation. Patient reported nausea, vomiting and fever over the last day. She has reported increased vomiting over the past day. Patient also reports right heel pain. She was in [facility] recently for vacation. She slipped on some rocks. She had an abrasion to the right heel. She has noted some pus in drainage over the last couple of days. She has been taking care of it. In the ER patient was evaluated. Patient was tachycardic. No fever noted in the ER. Chest x-ray unremarkable. CT abdomen unremarkable. CT head unremarkable. Tsh less than 0.005. Urinalysis negative. test negative. White count 9.5. Sodium 141, potassium 4.3. Renal function stable. Patient admitted for further evaluation. When I saw the patient ER, patient had received metoprolol. Heart rate much improved. Patient appears stable. Patient does not appear septic. 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 She has 1 child. - Family History Father -: Heart disease Brother -: Heart disease - Social History Smoking Status: Never smoker Alcohol use: Yes CD- Drugs: No Caffeine use: Yes Place of Residence: Home Review of Systems General: Fever, As per HPI Eyes: Unremarkable ENT: Unremarkable Respiratory: Unremarkable Cardiovascular: Unremarkable Gastrointestinal: Nausea, Vomiting, Unremarkable Genitourinary: Unremarkable Musculoskeletal: As per HPI Integumentary: As per HPI Neurological: Unremarkable Lymphatics: Unremarkable Physical Examination - Vital Signs Temperature: 97.4 F Blood Pressure: 106/58 Pulse: 120 Respirations: 17 Pulse Ox (%): 99 - Physical Exam General: Alert, In no apparent distress, Oriented x3, Cooperative HEENT: Atraumatic Neck: Supple Respiratory: Clear to auscultation bilaterally, Normal air movement Cardiovascular: Abnormal pulses (Sinus tachycardia) Gastrointestinal: Normal bowel sounds, Soft and benign, Non-distended, No tenderness, No masses, No rebound, No guarding Musculoskeletal: No contractures Integumentary: Other (Slight fluctuance to the right heel. Excoriation noted.) Neurological: Normal speech, Normal strength at 5/5 x4 extr, Normal tone, Normal affect - Studies Laboratory Data (last 24 hrs) 05/05/20 04:13: PT 12.5, INR 1.06, APTT 28.5 05/05/20 00:00: Lipase 32 L 05/04/20 23:11: Sodium 141, Potassium 4.3, BUN 24 H, Creatinine 0.65, Glucose 92, Total Bilirubin 0.7, AST 33, ALT 43, Alkaline Phosphatase 193 H 05/04/20 23:11: WBC 9.5, Hgb 13.2, Hct 38.0, Plt Count 251 Microbiology Data (last 24 hrs): 05/04/20 22:52 Nasopharnyx Influenza Type A Antigen Screen - Final 05/04/20 22:52 Nasopharnyx Influenza Type B Antigen Screen - Final 05/04/20 22:52 Throat Group A Streptococcus Rapid Screen - Final Assessment and Plan - Plan Impression: Tachycardia/fever with noted right heel cellulitis with possible abscess Hypertension Naina Plan: Will continue with aggressive IV fluids. Will monitor closely. Will start antibiotic therapy. Blood cultures obtained. Will restart hypertensive medication. Will monitor closely. Case discussed with surgery. Will keep the patient NPO after midnight. Patient will likely require debridement. 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 Monitor closely. Reassess tomorrow. Discharge Plan: Home Plan to discharge in: 48 Hours - Advance Directives Does patient have a Living Will: No Does patient have a Durable POA for Healthcare: No - Code Status/Comfort Care Code Status Assessed: Yes (Patient is full code) Time Spent Managing Pts Care (In Minutes): 55
[2020-05-05] MEDS: METOPROLOL TAR 50 MG TAB PO SCH (21:56)
[2020-05-05 23:53] LABS: Barbiturates NEGATIVE (NEGATIVE); Benzodiazepines NEGATIVE (NEGATIVE); Cocaine NEGATIVE (NEGATIVE); METHAMPHETAM NEGATIVE (NEGATIVE); Methadone NEGATIVE (NEGATIVE); Opiates NEGATIVE (NEGATIVE); Phencyclidine NEGATIVE (NEGATIVE); THC Cannibis NEGATIVE (NEGATIVE); Urine Appearance CLEAR; Urine Blood 2+ (NEG); Urine Color DK YELLOW; Urine Glucose NEGATIVE (NEG); Urine Protein 1+ (NEG); Urine Specific Gravity >=1.030 (1.005-1.030)
[2020-05-05 23:56] LABS: Urine Microscopic Reflex ORDER UMIC
[2020-05-06 00:18] LABS: Urine Bilirubin NEGATIVE (NEG)
[2020-05-06 00:41] LABS: CKMB Creatine Kinase MB 1.3 ng/mL (0.3-3.6); Troponin I 0.06 ng/mL (0.0-0.045)
[2020-05-06 01:07] LABS: Urine Amorphous Sediment 4+ /HPF (NONE SEEN); Urine Bacteria <20 /HPF (<20); Urine Culture Reflex Order NOT NEEDED; Urine RBC <5 /HPF (NONE SEEN)
[2020-05-06] MEDS: VANCOMYCIN/NS 1 gm 1 GM/250 ML BAG IV SCH ×2 (01:21→14:44)
[2020-05-06 04:53] LABS: Absolute Lymphocytes (CBC) 1.8 K/uL (0.7-4.9); Basophils % 0.3 % (0-1.3); Hematocrit 29.2 % (36.0-45.0); Lymphocytes % 46.9 % (15.3-44.8); MPV 8.5 fL (7.6-11.3); RBC Red Blood Cell Count 3.46 M/uL (3.86-4.86)
[2020-05-06 04:56] LABS: BUN Blood Urea Nitrogen 15 mg/dL (7-18); Bicarbonate 24 mmol/L (21-32); Glucose Level 127 mg/dL (74-106); Potassium 3.6 mmol/L (3.5-5.1); Sodium Level 147 mmol/L (136-145)
[2020-05-06 05:22] LABS: Blood Morphology Comment NOT SEEN (NOT SEEN); Platelet Estimate ADEQ
[2020-05-06] MEDS: NACHLORIDE 0.45% 1,000 ML IV SCH ×2 (08:47→16:49)
[2020-05-06] MEDS: ACETAMINOPHEN 500 MG TAB PO PRN (08:49)
[2020-05-06] MEDS: METOPROLOL TAR 50 MG TAB PO SCH (08:51)
[2020-05-06] MEDS ORDERED: POTASSIUM 25 MEQ EFFERV TAB PO ONE (09:00)
[2020-05-06] MEDS ORDERED: CETIRIZINE HCL 5 MG TABLET PO SCH (09:00)
[2020-05-06] MEDS ORDERED: SODIUM HYPOCHLORITE 0.25% 473 ML TOP SCH ×2 (09:00→15:15)
[2020-05-06] MEDS ORDERED: SERTRALINE HCL 50 MG TAB PO SCH (09:00)
[2020-05-06] MEDS ORDERED: VANCOMYCIN 1 GM in NA CHLORIDE 0.9% 500 ML IVPB SCH (09:00)
[2020-05-06] MEDS ORDERED: ENOXAPARIN 40 MG/0.4 ML SQ SCH (09:00)
--- NOTE | 2020-05-06 10:44 | CON ---
Date of Consultation: 05/05/2020 Reason For Consultation: Right heel wound. Brief History Of Present Illness: Patient is a 44-year-old female with a history of Hashim clinton's disease, hypertension, mitral valve prolapse with regurgitation, who reported nausea, vomiting, and fever over the last 24 hours. She reported increased vomiting over the past 24 hours associated with these other complaints. She was in [place] for vacation and scraped her heel across somethi ng and was complaining of right heel pain. In addition to this, there was an abrasion on the right h eel and she states she squeezed some pus out of it prior to her presentation in the hospital. This o ccurred 3 or 4 days prior to her presentation to the hospital. 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 No additional drainage, however, has occurred recently. Past Medical History: Significant for hypertension, Raynaud, PTSD, Naina's thyroiditis, mitral v alve prolapse with regurgitation. Allergies: TO CODEINE, METHOCARBAMOL, MORPHINE. Social History: She denies smoking. She drinks alcohol recreationally. Denies any drug use. Review of Systems: Ten-point review of systems other than HPI, denies. Physical Examination: Vital Signs: At the time of my examination, her temperature was 97.4, blood pressure 106/58, pulse i s 82, respiratory rate 17, pulse ox 99% on room air. General: She is awake, alert, and oriented. Psychiatric: She is appropriate, conversive. HEENT: She is normocephalic. Sclerae were anicteric. Mucous membranes are moist. Oropharynx is cl ear. Neck: Supple. No JVD. Chest: Normal expansion and excursion. Cardiovascular: Regular rate and rhythm. Pulmonary: Clear to auscultation bilaterally. Abdomen: Soft, nontender. Extremities: Focused examination of the extremities, she has a heel abrasion with some sloughing ski n, but no drainable collections. It is a small apparent abrasion to the right heel, which has mild t enderness to palpation approximately 1 cm area just into the subcutaneous tissues. There is a slight build up of skin, but no granulation tissue or other evidence of infection or deep wounds in this ar ea. Laboratory Data: Reveals a white blood cell count of 9.5, hemoglobin is 13.2, hematocrit of 38.0, pl atelet count was 251. Her sodium was 141, potassium was 4.3, chloride 109, carbon dioxide 20, BUN 24 , creatinine 0.65. Her lactic acid was 0.9. Her alkaline phosphatase is 193. Her test wa s negative. She has a COVID test currently pending. She had imaging performed, which included an x-ray of the foot, which was officially read as soft tis carissa swelling seen about the heel. No fracture or radiopaque foreign body. Assessment And Plan: This is a 44-year-old female who has an abrasion of her heel. 1.Antibiotic coverage. 2.Dakin's solution 0.25% damp to dry and elevation of the heel and serial examinations. The patient does not have a drainable collection at this point time or any need for surgical debridement. Howev er, we will follow along with you. Thank you for this interesting consult. LIZ Voice ID: [id number] Report ID: [id number]
[2020-05-06] MEDS ORDERED: TRAMADOL HCL 50 MG TAB PO PRN (10:59)
--- NOTE | 2020-05-06 11:01 | P.PN ---
Subjective Date of Service: 05/06/20 Primary Care Provider: [facility] End[facility]in[facility] Chief Complaint: Fever, nausea and vomiting Subjective: Improving (Heel improving, less tender, no drainage, no cellulitis) Physical Examination - Vital Signs Temperature: 98.8 F Blood Pressure: 132/76 Pulse: 108 Respirations: 18 Pulse Ox (%): 97 - Physical Exam General: Alert, In no apparent distress, Cooperative Musculoskeletal: Other (RIGHT heel abrasion is stable, no drainable collections, escar is dry, stable) - Studies Laboratory Data (last 24 hrs) 05/06/20 04:29: Sodium 147 H, Potassium 3.6, BUN 15, Creatinine 0.59, Glucose 127 H, Magnesium 2.0 05/06/20 04:29: WBC 3.7 L D, Hgb 10.0 L D, Hct 29.2 L D, Plt Count 139 L D 05/05/20 23:45: Troponin I 0.06 H 05/05/20 15:40: Troponin I 0.06 H Assessment And Plan - Current Problems (Diagnosis) (1) Puncture wound of heel Current Visit: Yes Status: Acute Plan: - Serial exams - Dakins solution 0.25% damp to dry daily dressing changes - elevation - continue antibiotics
[2020-05-06] MEDS: CEFEPIME/SWI 1gm 10 ML IV SCH (11:31)
[2020-05-06] MEDS ORDERED: HYDROCODONE/APAP 7.5/325 MG TAB PO PRN (12:33)
[2020-05-06 13:12] VITALS: O2SAT 98
[2020-05-06] MEDS ORDERED: HYDROCODONE/APAP 7.5/325 MG TAB PO SCH (14:00)
[2020-05-06 16:58] VITALS: BP 124/68; TEMP 98.4
--- NOTE | 2020-05-06 17:44 | P.DS ---
Admission Date: 05/06/20 Discharge Date: 05/06/20 Primary Care Provider: Ronald Salvador Disposition: ROUTINE DISCHARGE Discharge Condition: GOOD Reason for Admission: Fever, nausea and vomiting Consultations: Surgery-Dr. Amaya Procedures: CT head: FINDINGS: Brain: No acute intracranial hemorrhage. No extra-axial collection. No mass effect or herniation. Ventricles: Within normal limits in size. Globes and orbits: No acute abnormality. Bones: No acute osseous finding Paranasal sinuses: Paranasal sinuses are clear. Mastoid air cells: Well pneumatized. Soft tissues: Within normal limits IMPRESSION: No acute intracranial abnormality. CT Abdomen: COMPARISON: None. FINDINGS: LUNG BASES: Bibasilar atelectasis. No focal consolidation. HEART: Visualized heart is normal. ABDOMEN: LIVER: Diffuse hepatic steatosis. GALLBLADDER AND BILE DUCTS: Prior cholecystectomy. No ductal dilation. PANCREAS: Unremarkable. No mass. No ductal dilation. SPLEEN: Unremarkable. No splenomegaly. ADRENALS: Unremarkable. No mass. KIDNEYS AND URETERS: Unremarkable. No solid mass. No hydronephrosis. STOMACH AND BOWEL: Unremarkable. No obstruction. No mucosal thickening. PELVIS: APPENDIX: The appendix is seen and is within normal limits. BLADDER: Bladder is decompressed. REPRODUCTIVE: Tampon in the vaginal canal. 2.5 cm left ovarian cyst. ABDOMEN and PELVIS: INTRAPERITONEAL SPACE: Unremarkable. No free air. No significant fluid collection. BONES/JOINTS: No acute fracture. No dislocation. SOFT TISSUES: Bilateral breast implants. VASCULATURE: Unremarkable. No abdominal aortic aneurysm. LYMPH NODES: Unremarkable. No enlarged lymph nodes. IMPRESSION: 1. No acute abdominal or pelvic abnormality. 2. Diffuse hepatic steatosis. 3. Physiologic pelvic changes with 2.5 cm left ovarian cyst. No follow-up imaging is recommended. Foot Xray: COMPARISON: No comparisons FINDINGS: Soft tissue swelling is seen about the heel. No fracture or radiopaque foreign body. Medical Problem List: Tachycardia/fever with noted right heel cellulitis Hypertension History of Naina Depression with anxiety Brief History of Present Illness: 44-year-old female with history of Naina sees, hypertension, mitral valve prolapse with regurgitation. Patient reported nausea, vomiting and fever over the last day. She has reported increased vomiting over the past day. Patient also reports right heel pain. She was in [facility] recently for vacation. She slipped on some rocks. She had an abrasion to the right heel. She has noted some pus in drainage over the last couple of days. She has been taking care of it. In the ER patient was evaluated. Patient was tachycardic. No fever noted in the ER. Chest x-ray unremarkable. CT abdomen unremarkable. CT head unremarkable. Tsh less than 0.005. Urinalysis negative. test negative. White count 9.5. Sodium 141, potassium 4.3. Renal function stable. Patient admitted for further evaluation. When I saw the patient ER, patient had received metoprolol. Heart rate much improved. Patient appears stable. Patient does not appear septic. Hospital Course: Patient presented with tachycardia and fever. This may be related to right heel cellulitis. Patient was treated during the course of her stay. Patient seen by surgery. No need for surgical intervention. Surgery recommended current wound care. At discharge patient may continue with doxycycline 100 mg twice daily for 7 days. Patient will continue with wound care as recommended by surgery. Patient to use Dakin's solution. Patient may follow up with surgery in 1-2 weeks to follow up this hospitalization. Patient has underlying hypertension. At discharge she will continue with Lopressor 100 mg daily. Recommend to maintain blood pressure less 150/80. Further adjustment can be done by her PCP. Patient with history of Naina disease. Patient is currently seen by Endocrin ology in [facility]. Patient currently takes nature thyroid 65 mg daily. Patient also takes Synthroid 25 mcg daily. Tsh low at less than 0.005. Free T4 was 3.89. T4 of 18. Free T3 8.7. Recommend to hold both medications for at least 1 week. May need to discontinue nature Thyroid and continue with Synthroid. Recommend follow up with Endocrinology in 1 week to go over results and recommendations. Further adjustment can be done by endocrinology. Patient with depression with anxiety. At discharge she will continue with her current medications of Zoloft 50 mg daily, Seroquel 50 mg at bedtime and Xanax as needed. Recommend follow up with her PCP to further monitor and address. Vital Signs/Physical Exam: Temp Pulse Resp BP Pulse Ox 98.4 F 106 H 17 124/68 96 05/06/20 16:00 05/06/20 16:00 05/06/20 16:00 05/06/20 16:00 05/06/20 16:00 General: Alert, In no apparent distress, Oriented x3, Cooperative HEENT: Atraumatic Neck: Supple Respiratory: Clear to auscultation bilaterally, Normal air movement Cardiovascular: Normal pulses, Regular rate/rhythm Gastrointestinal: Normal bowel sounds, No tenderness, No masses, No rebound, No guarding Integumentary: Other (Left heel wound improved.) Neurological: Normal speech, Normal strength at 5/5 x4 extr, Normal tone, Normal affect Laboratory Data at Discharge: WBC 3.7 K/uL (4.3-10.9) L D 05/06/20 04:29 Hgb 10.0 g/dL (12.0-15.0) L D 05/06/20 04:29 Hct 29.2 % (36.0-45.0) L D 05/06/20 04:29 Plt Count 139 K/uL (152-406) L D 05/06/20 04:29 PT 12.5 SECONDS (9.5-12.5) 05/05/20 04:13 INR 1.06 05/05/20 04:13 APTT 28.5 SECONDS (24.3-36.9) 05/05/20 04:13 Sodium 147 mmol/L (136-145) H 05/06/20 04:29 Potassium 3.6 mmol/L (3.5-5.1) 05/06/20 04:29 BUN 15 mg/dL (7-18) 05/06/20 04:29 Creatinine 0.59 mg/dL (0.55-1.3) 05/06/20 04:29 Glucose 127 mg/dL (74-106) H 05/06/20 04:29 Magnesium 2.0 mg/dL (1.8-2.4) 05/06/20 04:29 Total Bilirubin 0.7 mg/dL (0.2-1.0) 05/04/20 23:11 AST 33 U/L (15-37) 05/04/20 23:11 ALT 43 U/L (12-78) 05/04/20 23:11 Alkaline Phosphatase 193 U/L (45-117) H 05/04/20 23:11 Troponin I 0.06 ng/mL (0.0-0.045) H 05/05/20 23:45 Lipase 32 U/L (73-393) L 05/05/20 00:00 Home Medications: ALPRAZolam [Xanax*] 0.25 mg PO DAILY PRN 05/05/20 Levocetirizine Dihydrochloride [Xyzal] 5 mg PO DAILY 05/05/20 Levothyroxine Sodium 25 mcg PO DAILY 05/05/20 Metoprolol Tartrate [Lopressor] 100 mg PO DAILY 05/05/20 Quetiapine Fumarate [Seroquel] 50 mg PO BEDTIME 05/05/20 Sertraline [Zoloft*] 50 mg PO DAILY 05/05/20 Doxycycline Hyclate 100 mg PO BID #14 tablet 05/06/20 Sodium Hypochlorite [Dakin's] 473 ml MC DAILY #1 solution 05/06/20 New Medications: Sodium Hypochlorite [Dakin's] 473 ml MC DAILY #1 solution Doxycycline Hyclate 100 mg PO BID #14 tablet Patient Discharge Instructions: 1. Recommend follow up with PCP in 1 week to follow up hospitalization. 2. Patient presented with tachycardia and fever. This may be related to right heel cellulitis. Patient was treated during the course of her stay. Patient seen by surgery. No need for surgical intervention. Surgery recommended current wound care. At discharge patient may continue with doxycycline 100 mg twice daily for 7 days. Patient will continue with wound care as recommended by surgery. Patient to use Dakin's solution. Patient may follow up with surgery in 1-2 weeks to follow up this hospitalization. 3. Patient has underlying hypertension. At discharge she will continue with Lopressor 100 mg daily. Recommend to maintain blood pressure less 150/80. Further adjustment can be done by her PCP. 4. Patient with history of Naina disease. Patient is currently seen by Endocrinology in [facility]. Patient currently takes nature thyroid 65 mg daily. Patient also takes Synthroid 25 mcg daily. Tsh low at less than 0.005. Free T4 was 3.89. T4 of 18. Free T3 8.7. Recommend to hold both medications for at least 1 week. May need to discontinue nature Thyroid and continue with Synthroid. Recommend follow up with Endocrinology in 1 week to go over results and recommendations. Further adjustment can be done by endocrinology. 4. Patient with depression with anxiety. At discharge she will continue with her current medications of Zoloft 50 mg daily, Seroquel 50 mg at bedtime and Xanax as needed. Recommend follow up with her PCP to further monitor and address. Diet: AHA Activity: Ad alfred Time spent managing pt's care (in minutes): 55
== END 2020-05-06 20:04 | disposition home or self-care (01) | DRG 603 ==
LOC: ER 21:46 → ERHOLD 05-05 11:22 → 2ND 05-05 17:03 → OBSVTOIN 05-06 08:14
PROVIDERS: ADMIT Family Medicine; ATTEND Family Medicine
DX: L03.115 Cellulitis of right lower limb (principal); E86.0 Dehydration; R00.0 Tachycardia, unspecified; S91.331A Puncture wound without foreign body, right foot, initial encounter; E06.3 Autoimmune thyroiditis; I10 Essential (primary) hypertension; I34.1 Nonrheumatic mitral (valve) prolapse; I73.00 Raynaud's syndrome without gangrene; F43.10 Post-traumatic stress disorder, unspecified; F41.8 Other specified anxiety disorders; Z11.59 Encounter for screening for other viral diseases
CPT/HCPCS: 36415; 70450; 71045; 74177; 80048; 80053; 80307; 81003; 81015; 81025; 82550; 82553; 83605; 83690; 83735; 84145; 84436; 84439; 84443; 84481; 84484; 85025; 85610; 85730; 87040; 87070; 87081; 87804; 96361; 96374; 96375; 99284; G0378; J0692; J1650; J1720; J2405; J2550; J3010; J3370; J7030; Q9967; U0002